=== PATIENT | male | born 1970 | race Caucasian/White ===

== ENCOUNTER 2016-10-13 16:24 | Emergency (ER) | payer BC ==
[~2016-10-13] VITALS: Ht 170.2 cm; Wt 84.2 kg
[2016-10-13] MEDS ORDERED: ASPIRIN 81 MG TABLET CHEW PO ONE (17:00)
[2016-10-13] MEDS ORDERED: SODIUM CHLORIDE FLUSH 10ML SYR IVF ONE (17:00)
[2016-10-13] MEDS ORDERED: ASPIRIN 81 MG TABLET CHEW ONE (17:09)
[2016-10-13 17:28] LABS: BLOOD UREA NITROGEN 9 mg/dL (7-18)
[2016-10-13 17:37] LABS: IS PT STATUS REG ER OR PRE ER? YES
[2016-10-13 18:10] VITALS: BP 139/91
== END 2016-10-13 18:43 | disposition home or self-care (01) ==
LOC: ED 18:30
DX: I49.3 Ventricular premature depolarization (principal); I10 Essential (primary) hypertension; F17.200 Nicotine dependence, unspecified, uncomplicated; Z88.8 Allergy status to other drugs, medicaments and biological substances
CPT/HCPCS: 36415; 71020; 80048; 82040; 83735; 84436; 84443; 84484; 85025; 93005